=== PATIENT | female | born 1975 | race African-American/Black ===

== ENCOUNTER 2022-04-09 12:22 | Observation (INO) ==
[2022-04-09] MEDS ORDERED: ASPIRIN 325 MG TABLET PO STA (13:13)
[2022-04-09] MEDS ORDERED: NITROGLYCERIN 2% OINT 1 INCH/GM PACK TOP STA (13:32)
[2022-04-09 13:55] LABS: Basophils % 0.4 % (0.0-0.8); Eosinophils # 0.1 10*3/uL (0.0-0.87); Eosinophils % 1.7 % (0.00-10.9); Hematocrit 32.7 VOL% (35.7-47.0); Hemoglobin 12.1 GM/DL (12.0-16.0); Immature Granulocytes % 0.2 %; Immature Granulocytes Absolute 0.01 #; Lymphocytes # 2.6 10*3/uL (1.4-4.0); Lymphocytes % 52.9 % (21.3-54.2); Mean Corpuscular Volume 80.3 FL (87-102); Mean Platelet Volume 10.6 FL (9.6-12.0); Monocytes # 0.8 10*3/uL (0.11-0.8); Neutrophils % 28.8 % (38.7-73.9); Platelet Count 229 T/CUMM (130-400); Red Blood Count 4.07 MC/CUMM (3.8-5.5); Red Cell Distribution Width 16.5 % (9.3-17.3); White Blood Count 4.8 T/CUMM (4-12)
[2022-04-09 14:12] LABS: Lymphocytes 58 % (20-55); Platelet Estimate Adequate; Total Cells Counted 100
[2022-04-09 14:13] LABS: Anisocytosis 1+
[2022-04-09 14:14] LABS: Albumin 3.8 G/DL (3.4-5.0); Bilirubin,Total 0.5 MG/DL (0.20-1.00); Calcium 8.8 MG/DL (8.5-10.1); Microcytosis 1+; Osmolality,Calculated 280.3 MOS/KG (273-304); Potassium 3.1 MMOL/L (3.5-5.1); Total Protein 8.1 G/DL (6.4-8.2)
[2022-04-09] MEDS ORDERED: POTASSIUM CHLORIDE 20 MEQ TABLET PO STA (15:01)
[2022-04-09] MEDS ORDERED: GLUCAGON 1 MG VIAL IM PRN (16:35)
[2022-04-09] MEDS ORDERED: ONDANSETRON 4 MG/2 ML VIAL IV PRN (16:35)
[2022-04-09] MEDS ORDERED: CYCLOBENZAPRINE 10 MG TABLET PO PRN (16:58)
[2022-04-09] MEDS ORDERED: DEXTROSE 10% 250 ML BAG IV PRN (17:06)
[2022-04-09] MEDS ORDERED: METHOTREXATE 2.5 MG TABLET PO SCH ×2 (18:00→22:30)
[2022-04-09 19:03] LABS: % Iron Saturation 11.8 % (18-50)
[2022-04-09 19:10] LABS: Folate > 24.00 NG/ML (5.38-24.0); Vitamin B12 428 PG/ML (211-911)
[2022-04-09 19:30] LABS: Mucus,Urine Occasional /LPF (Occasional); RBC,Urine 1 /HPF (0-4); Squamous Epithelial Cell,Urine Occasional /HPF (0-10)
[2022-04-09 19:31] LABS: Bilirubin,Urine Negative (Negative); Blood, Urine Negative (Negative); Glucose,Urine (UA) Negative (Negative); Ketones,Urine Negative (Negative); Nitrite,Urine Negative (Negative); Protein,Urine Negative (Negative); Urine Appearance Clear (Clear); Urine Color Yellow (Yellow); Urine Specific Gravity 1.032 (1.001-1.035); Urine pH 6.5 (4.5-8.0)
[2022-04-09] MEDS ORDERED: ENOXAPARIN 40 MG/0.4 ML SYRINGE SUBCUT SCH (21:00)
[2022-04-09] MEDS: INSULIN LISPRO 100 UNIT/ML SUBCUT SCH (21:20)
[2022-04-09] MEDS ORDERED: ZALEPLON 5 MG CAPSULE PO ONE (21:30)
[2022-04-09] MEDS ORDERED: NAPROXEN 500 MG TABLET PO ONE (21:30)
[2022-04-09] MEDS: FLUTICASONE 50 MCG NASAL SPRAY 16 GM BOTTLE BOTH NARES SCH (21:44)
[2022-04-09] MEDS: HYDROXYCHLOROQUINE 200 MG TABLET PO SCH (22:10)
[2022-04-09] MEDS: predniSONE 20 MG TABLET PO SCH (22:10)
[2022-04-09] MEDS: valACYclovir 500 MG TABLET PO SCH (22:10)
[2022-04-09] MEDS: GABAPENTIN 600 MG TABLET PO SCH (22:10)
[2022-04-09] MEDS: PANTOPRAZOLE 40 MG TABLET PO SCH (22:10)
[2022-04-10 04:26] LABS: Basophils % 0.2 % (0.0-0.8); Eosinophils % 0.9 % (0.00-10.9); Hematocrit 34.6 VOL% (35.7-47.0); Hemoglobin 12.3 GM/DL (12.0-16.0); Immature Granulocytes % 0.2 %; Immature Granulocytes Absolute 0.01 #; Lymphocytes # 1.3 10*3/uL (1.4-4.0); Lymphocytes % 29.5 % (21.3-54.2); Mean Corpuscular HGB Conc 35.5 GM/DL (32-36); Monocytes # 0.7 10*3/uL (0.11-0.8); Monocytes % 14.5 % (1.7-12.7); Neutrophils % 54.7 % (38.7-73.9); Platelet Count 241 T/CUMM (130-400); Red Blood Count 4.22 MC/CUMM (3.8-5.5); Red Cell Distribution Width 16.7 % (9.3-17.3); White Blood Count 4.5 T/CUMM (4-12)
[2022-04-10 04:59] LABS: Albumin 3.6 G/DL (3.4-5.0); Bilirubin,Total 0.5 MG/DL (0.20-1.00); Calcium 8.9 MG/DL (8.5-10.1); Osmolality,Calculated 278.5 MOS/KG (273-304); Potassium 4.4 MMOL/L (3.5-5.1); Thyroid Stimulating Hormone 1.6 uIU/ml (0.358-3.74); Total Protein 8.2 G/DL (6.4-8.2); VLDL Cholesterol 38.4 MG/DL
[2022-04-10] MEDS: INSULIN LISPRO 100 UNIT/ML SUBCUT SCH ×2 (08:40→11:45)
[2022-04-10] MEDS ORDERED: CETIRIZINE 10 MG TABLET PO SCH (09:00)
[2022-04-10] MEDS ORDERED: ASPIRIN CHEW 81 MG TABLET PO SCH (09:00)
[2022-04-10] MEDS: valACYclovir 500 MG TABLET PO SCH (09:26)
[2022-04-10] MEDS: predniSONE 20 MG TABLET PO SCH (09:26)
[2022-04-10] MEDS: HYDROXYCHLOROQUINE 200 MG TABLET PO SCH (09:26)
[2022-04-10] MEDS: PANTOPRAZOLE 40 MG TABLET PO SCH (09:26)
[2022-04-10] MEDS: FLUTICASONE 50 MCG NASAL SPRAY 16 GM BOTTLE BOTH NARES SCH (09:27)
[2022-04-10] MEDS ORDERED: GABAPENTIN 300 MG CAPSULE PO SCH (09:30)
[2022-04-10] MEDS: GABAPENTIN 600 MG TABLET PO SCH (10:02)
[2022-04-10 12:41] VITALS: BP 136/79
== END 2022-04-10 14:07 | disposition home or self-care (01) ==
LOC: N.ED 12:22 → SUATTDRO 16:35 → N.EDINP 16:35 → INTOOBSV 16:35 → N.2W 04-10 07:27
PROVIDERS: ADMIT Internal Medicine; ATTEND Internal Medicine Geriatric Medicine